=== PATIENT | male | born 1995 | race Caucasian/White ===

== ENCOUNTER 2017-09-12 20:56 | Emergency (ER) | payer OTHER ==
[~2017-09-12] VITALS: Ht 177.8 cm; Wt 81.6 kg
[2017-09-12 21:10] VITALS: BP_SYST 131
[2017-09-12] MEDS ORDERED: SUMAtriptan SUCCINATE 50 MG TABLET PO ONE (23:00)
[2017-09-12] MEDS ORDERED: SUMAtriptan SUCCINATE 50 MG TABLET ONE (23:09)
[2017-09-13] VITALS: BP_SYST 128
== END 2017-09-13 | disposition home or self-care (01) ==
LOC: SED 20:56
DX: L01.00 Impetigo, unspecified (principal); R51 Headache; F12.10 Cannabis abuse, uncomplicated; R03.0 Elevated blood-pressure reading, without diagnosis of hypertension; Z87.891 Personal history of nicotine dependence
CPT/HCPCS: 99283

== ENCOUNTER 2017-10-03 21:28 | Emergency (ER) | payer OTHER ==
[~2017-10-03] VITALS: Ht 177.8 cm; Wt 77.1 kg
[2017-10-03 21:44] VITALS: BP_SYST 116
--- NOTE | 2017-10-03 22:26 | NUR ---
Patient to ER bed 8 to gown for evaluation. Side rails up. Report given to JOSE Herbert.
--- NOTE | 2017-10-03 22:27 | NUR ---
Pt in bed 8 with c/o of migrane H/A symptoms on and off x [address] Walden aware.
--- NOTE | 2017-10-03 22:54 | NUR ---
ER at bedside examining patient.
[2017-10-03] MEDS ORDERED: traMADol HCL HCL 50 MG TABLET (ULTRAM) PO ONE (23:15)
[2017-10-04 00:13] VITALS: BP_SYST 118
--- NOTE | 2017-10-04 00:13 | NUR ---
Patient given written and verbal discharge instructions and verbalizes understanding. ER MD discussed with patient the results and treatment provided. Patient in stable condition. ID arm band removed. Rx of tramadol and ambien given. Patient educated on pain management and to follow up with PMD. Pain Scale 0/10. Opportunity for questions provided and answered.
== END 2017-10-04 00:13 | disposition home or self-care (01) ==
LOC: SED 21:28
DX: R51 Headache (principal); G47.00 Insomnia, unspecified
CPT/HCPCS: 70450-TC; 99284